=== PATIENT | female | born 1990 ===

== ENCOUNTER 2019-09-15 05:57 | Inpatient (IN) | payer BC ==
[2019-09-15] MEDS ORDERED: Water For Irrigation,Sterile 1,000 ML Container IRR PRN (06:26)
[2019-09-15] MEDS ORDERED: Lidocaine 1% 50 ML MDV INJECT PRN (06:26)
[2019-09-15] MEDS ORDERED: Butorphanol 1 MG/ML SDV IVPUSH PRN (06:26)
[2019-09-15] MEDS ORDERED: Misoprostol 200 MCG Tab PO PRN (06:26)
[2019-09-15] MEDS ORDERED: Ondansetron 4 MG/2 ML SDV IVPUSH PRN (06:26)
[2019-09-15] MEDS ORDERED: Sodium Chloride 0.9% 2.5 ML Syringe FLUSH PRN (06:26)
[2019-09-15] MEDS ORDERED: Tranexamic Acid 1,000 MG in Sodium Chloride 0.9% 100 ML IV PRN (06:26)
[2019-09-15] MEDS ORDERED: Nalbuphine 10 MG/1 ML Vial IVPUSH PRN (06:26)
[2019-09-15] MEDS ORDERED: Methylergonovine 0.2 MG/1 ML Amp IM PRN (06:26)
[2019-09-15] MEDS ORDERED: Sodium Chloride 0.9% 10 ML SDV IV PRN (06:26)
[2019-09-15] MEDS ORDERED: Carboprost Tromethamine 250 MCG/1 ML Amp IM PRN (06:26)
[2019-09-15] MEDS ORDERED: Sodium Chloride 0.9% 10 ML Syringe FLUSH PRN (06:26)
[2019-09-15] MEDS ORDERED: Oxytocin/0.9 % Sodium Chloride 30 UNIT/500 ML BAG IV SCH (06:30)
[2019-09-15] MEDS ORDERED: Lactated Ringers 1,000 ML IV SCH (06:30)
[2019-09-15] MEDS ORDERED: Oxytocin 10 Units/1 ML SDV ONE (06:40)
[2019-09-15] MEDS ORDERED: Lanolin 100% Cream 7 GM Tube TOP PRN (07:05)
[2019-09-15] MEDS ORDERED: Docusate Sodium 100 MG Cap PO PRN (07:05)
[2019-09-15] MEDS ORDERED: Witch Hazel Medicated Pads 40/Jar TOP PRN (07:05)
[2019-09-15] MEDS ORDERED: Bisacodyl 10 MG Supp RECTAL PRN (07:05)
[2019-09-15] MEDS ORDERED: Benzocaine/Menthol 20%-0.5% Spray 78 GM Cannister TOP PRN (07:05)
[2019-09-15] MEDS ORDERED: oxyCODONE 5 MG Tab PO PRN (07:05)
[2019-09-15] MEDS ORDERED: Ibuprofen 800 MG Tab PO PRN (07:05)
[2019-09-15] MEDS ORDERED: Acetaminophen 500 MG Tab PO PRN (07:05)
--- NOTE | 2019-09-15 07:13 | PCM.DEL ---
L & D Note - General Info Date of Service: 09/15/19 Mother's Due Date: 10/06/19 - Delivery Note Labor: Spontaneous Delivery Outcome: Livebirth Infant Delivery Method: Spontaneous Vaginal Delivery-Single Nuchal Cord: None Anesthesia Type: None Amniotic Fluid Description: Clear Episiotomy Type: None Laceration: 1st Degree (hemostatic without repair) Placenta: Intact, Spontaneous Cord: 3 Vessels Estimated Blood Loss: 300 [place]: Stimulated, [place] Used Score 1 min: 8 Score 5 min: 9 Second Stage Interventions: Reports: Pushing Effectively, Pushing, Pulls Own Legs Back - General Info Date of Service: 09/15/19 - Patient Data Med Orders - Current: Current Medications Butorphanol Tartrate (Stadol) 1 mg IVPUSH Q1H PRN PRN Reason: Pain Carboprost Tromethamine (Hemabate Ds) 250 mcg IM ASDIRECTED PRN PRN Reason: Post Hemorrhage Lactated Ringer's (Ringers, Lactated) 1,000 mls @ 150 mls/hr IV ASDIRECTED JHOAN Oxytocin/Sodium Chloride (Oxytocin 30 Unit/500 Ml-Ns) 30 unit in 500 mls @ 999 mls/hr IV TITRATE JHOAN Tranexamic Acid 1,000 mg/ (Sodium Chloride) 110 mls @ 660 mls/hr IV ONETIME PRN PRN Reason: Bleeding Lidocaine HCl (Xylocaine 1%) 50 ml INJECT ONETIME PRN PRN Reason: Laceration repair Methylergonovine Maleate (Methergine) 0.2 mg IM ASDIRECTED PRN PRN Reason: Post Hemorrhage Misoprostol (Cytotec) 200 mcg PO ONETIME PRN PRN Reason: Post Hemorrhage Nalbuphine HCl (Nubain) 10 mg IVPUSH Q1H PRN PRN Reason: Pain (severe 7-10) Ondansetron HCl (Zofran) 4 mg IVPUSH Q6H PRN PRN Reason: Nausea/Vomiting Sodium Chloride (Saline Flush) 10 ml FLUSH ASDIRECTED PRN PRN Reason: Keep Vein Open Sodium Chloride (Saline Flush) 2.5 ml FLUSH ASDIRECTED PRN PRN Reason: Keep Vein Open Sodium Chloride (Normal Saline) 10 ml IV ASDIRECTED PRN PRN Reason: IV Use Sterile Water (Sterile Water For Irrigation) 1,000 ml IRR ASDIRECTED PRN PRN Reason: delivery Discontinued Medications Oxytocin (Pitocin) Confirm Administered Dose 10 unit .ROUTE .STK-MED ONE Stop: 09/15/19 06:41 - Problem List & Annotations (1) Vaginal delivery SNOMED Code(s): 170293409 Code(s): O80 - ENCOUNTER FOR FULL-TERM UNCOMPLICATED DELIVERY Status: Acute Current Visit: Yes - Problem List Review Problem List Initiated/Reviewed/Updated: Yes - My Orders Last 24 Hours: My Active Orders 09/15/19 06:26 Patient Status [ADT] Routine Heart Tones [RC] CONTINUOUS Non Stress Test [RC] PER UNIT ROUTINE May Shower [RC] ASDIRECTED Notify Provider [RC] PRN Up ad Mirna [RC] ASDIRECTED Vaginal Exam [RC] PRN Vital Signs [RC] PER UNIT ROUTINE CBC W/O DIFF,HEMOGRAM [HEME] Routine RAPID PLASMA REAGIN, QUANT [REF] Routine TYPE AND SCREEN [BBK] Routine Butorphanol [Stadol] 1 mg IVPUSH Q1H PRN Carboprost Tromethamine [Hemabate DS] 250 mcg IM ASDIRECTED PRN Lidocaine 1% [Xylocaine 1%] 50 ml INJECT ONETIME PRN Methylergonovine [Methergine] 0.2 mg IM ASDIRECTED PRN Nalbuphine [Nubain] 10 mg IVPUSH Q1H PRN Ondansetron [Zofran] 4 mg IVPUSH Q6H PRN Sodium Chloride 0.9% [Normal Saline] 10 ml IV ASDIRECTED PRN Sodium Chloride 0.9% [Saline Flush] 10 ml FLUSH ASDIRECTED PRN Sodium Chloride 0.9% [Saline Flush] 2.5 ml FLUSH ASDIRECTED PRN Tranexamic Acid [Cyklokapron] 1,000 mg Sodium Chloride 0.9% [Normal Saline] 100 ml IV ONETIME Water For Irrigation,Sterile [Sterile Water for Irrigation] 1,000 ml IRR ASDIRECTED PRN miSOPROStoL [Cytotec] 200 mcg PO ONETIME PRN Scalp Electrode [WOMSER] Per Unit Routine Peripheral IV Insertion Adult [OM.PC] Routine Resuscitation Status Routine 09/15/19 06:30 Lactated Ringers [Ringers, Lactated] 1,000 ml IV ASDIRECTED Oxytocin/0.9 % Sodium Chloride [Oxytocin 30 Unit/500 ML-NS] 30 unit in 500 ml IV TITRATE 09/15/19 07:05 Notify Provider Vital Signs [RC] ASDIRECTED Acetaminophen [Tylenol Extra Strength] 1,000 mg PO Q6H PRN Benzocaine/Menthol [Dermoplast Pain Relief 20%-0.5% [place]] 78 gm TOP ASDIRECTED PRN Bisacodyl [Dulcolax] 10 mg RECTAL ONETIME PRN Docusate Sodium [Colace] 100 mg PO BID PRN Ibuprofen [Motrin] 800 mg PO Q8H PRN Lanolin [Lansinoh HPA] See Dose Instructions TOP ASDIRECTED PRN Witch Cathie [Tucks] 1 pad TOP ASDIRECTED PRN oxyCODONE 5 mg PO Q2H PRN Breast Pump [WOMSER] Per Unit Routine 09/15/19 07:08 Patient Status [ADT] Routine May Shower [RC] ASDIRECTED Up ad Mirna [RC] ASDIRECTED Vital Signs [RC] PER UNIT ROUTINE Assess Lochia [WOMSER] Per Unit Routine Assess Uterine Involution [WOMSER] Per Unit Routine Peripheral IV Discontinue [OM.PC] Routine 09/15/19 07:09 Ice Therapy [OM.PC] Per Unit Routine Perineal Care [OM.PC] Per Unit Routine Sitz Bath [OM.PC] Per Unit Routine 09/15/19 07:10 BLOOD GAS VENOUS UMBILICAL [BG] Routine 09/15/19 Breakfast Regular Diet [DIET] 09/16/19 05:11 HEMOGLOBIN/HEMATOCRIT,HH [HEME] Timed - Assessment Assessment:: 29yo s/p at 37w0d. - Plan Plan:: Admit to . Monitor lochia. Routine care.
--- NOTE | 2019-09-15 11:11 | OR ---
SURGEON: Pily Dasilva MD DATE OF PROCEDURE: 09/15/2019 PREOPERATIVE DIAGNOSES: 1. A 29-year-old, G1, P0, at 37 weeks and 0 days' gestation. 2. Spontaneous labor with spontaneous rupture of membranes. POSTOPERATIVE DIAGNOSES: 1. A 29-year-old, G1, P0, at 37 weeks and 0 days' gestation. 2. Spontaneous labor with spontaneous rupture of membranes. PROCEDURE: Spontaneous vaginal delivery. PRIMARY SURGEON: Pily Dasilva MD. ANESTHESIA: None. ESTIMATED BLOOD LOSS: 300 mL. FINDINGS: Live male infant in cephalic presentation. score of 8 and 9 at one and five minutes respectively. Weight pending. Venous cord gas pending. Small first-degree perineal laceration, hemostatic without repair. Normal placenta with 3-vessel cord. INDICATIONS: This is a 29-year-old, G1, P0, who presented to Labor and Delivery with subsequent spontaneous rupture of membranes. She was checked and found to be complete cervical dilation, and +1 station. DESCRIPTION OF PROCEDURE: The patient progressed to complete cervical dilation without epidural. She pushed and delivered a live male . score of 8 and 9 at one and five minutes respectively. Weight pending. Head delivered followed by the shoulders and remainder of body. The infant was placed on the maternal abdomen. After 60 seconds, cord was clamped and cut. The placenta was then delivered intact and with 3-vessel cord using the Carter James maneuver. Perineum was inspected and a small first-degree perineal laceration was noted and this became hemostatic without repair. The fundus was firm below the umbilicus with minimal bleeding. The patient and tolerated the delivery well. [id number] / MODL /[id number]
--- NOTE | 2019-09-16 08:53 | PCM.PNPP ---
- General Info Date of Service: 09/16/19 Functional Status: Reports: Pain Controlled, Tolerating Diet, Ambulating, Urinating - Review of Systems General: Reports: No Symptoms HEENT: Reports: No Symptoms Pulmonary: Reports: No Symptoms Cardiovascular: Reports: No Symptoms Gastrointestinal: Reports: No Symptoms Genitourinary: Reports: No Symptoms Musculoskeletal: Reports: No Symptoms Skin: Reports: No Symptoms Neurological: Reports: No Symptoms Psychiatric: Reports: No Symptoms - Patient Data Vital Signs - Most Recent: Last Vital Signs Temp 36.7 C 09/16/19 04:33 Pulse 70 09/16/19 04:33 Resp 17 09/16/19 04:33 BP 99/60 09/16/19 04:33 Pulse Ox 97 09/16/19 04:33 Weight - Most Recent: 160 lb Lab Results - Last 24 Hours: Laboratory Results - last 24 hr 09/15/19 09/16/19 Range/Units 06:45 05:18 Hgb 12.7 (12.0-16.0) g/dL Hct 38.5 (36.0-46.0) % Cord VBG pH 7.296 (7.25-7.45) Cord VBG Base Excess -7 (-10--2) Med Orders - Current: Current Medications Acetaminophen (Tylenol Extra Strength) 1,000 mg PO Q6H PRN PRN Reason: Pain Benzocaine/Menthol (Dermoplast Pain Relief 20%-0.5% [place]) 78 gm TOP ASDIRECTED PRN PRN Reason: Perineal Comfort Measure Last Admin: 09/15/19 10:45 Dose: 78 gm Bisacodyl (Dulcolax) 10 mg RECTAL ONETIME PRN PRN Reason: Constipation Butorphanol Tartrate (Stadol) 1 mg IVPUSH Q1H PRN PRN Reason: Pain Carboprost Tromethamine (Hemabate Ds) 250 mcg IM ASDIRECTED PRN PRN Reason: Post Hemorrhage Docusate Sodium (Colace) 100 mg PO BID PRN PRN Reason: Constipation Emollient Ointment (Lansinoh Hpa) 0 gm TOP ASDIRECTED PRN PRN Reason: Sore Nipples Last Admin: 09/15/19 10:45 Dose: 7 gm Lactated Ringer's (Ringers, Lactated) 1,000 mls @ 150 mls/hr IV ASDIRECTED JHOAN Oxytocin/Sodium Chloride (Oxytocin 30 Unit/500 Ml-Ns) 30 unit in 500 mls @ 999 mls/hr IV TITRATE [facility] Tranexamic Acid 1,000 mg/ (Sodium Chloride) 110 mls @ 660 mls/hr IV ONETIME PRN PRN Reason: Bleeding Ibuprofen (Motrin) 800 mg PO Q8H PRN PRN Reason: Pain Lidocaine HCl (Xylocaine 1%) 50 ml INJECT ONETIME PRN PRN Reason: Laceration repair Methylergonovine Maleate (Methergine) 0.2 mg IM ASDIRECTED PRN PRN Reason: Post Hemorrhage Misoprostol (Cytotec) 200 mcg PO ONETIME PRN PRN Reason: Post Hemorrhage Nalbuphine HCl (Nubain) 10 mg IVPUSH Q1H PRN PRN Reason: Pain (severe 7-10) Ondansetron HCl (Zofran) 4 mg IVPUSH Q6H PRN PRN Reason: Nausea/Vomiting Oxycodone HCl (Oxycodone) 5 mg PO Q2H PRN PRN Reason: Pain Sodium Chloride (Saline Flush) 10 ml FLUSH ASDIRECTED PRN PRN Reason: Keep Vein Open Sodium Chloride (Saline Flush) 2.5 ml FLUSH ASDIRECTED PRN PRN Reason: Keep Vein Open Sodium Chloride (Normal Saline) 10 ml IV ASDIRECTED PRN PRN Reason: IV Use Sterile Water (Sterile Water For Irrigation) 1,000 ml IRR ASDIRECTED PRN PRN Reason: delivery Witch Cathie (Tucks) 1 pad TOP ASDIRECTED PRN PRN Reason: comfort care Discontinued Medications Oxytocin (Pitocin) Confirm Administered Dose 10 unit .ROUTE .STK-MED ONE Stop: 09/15/19 06:41 - Interaction Disposition, : at Bedside Infant Feeding: Attempted ; Nursed Fair/Poor Support Person: - Recovery Exam Fundal Tone: Firm Fundal Level: 1 Fingerbreadths Below Umbilicus Fundal Placement: Midline Lochia Amount: Scant Lochia Color: Rubra/Red Perineum Description: Intact, Minimal Bruising/Swelling Episiotomy/Laceration: Approximated Bladder Status: Voiding Urinary Elimination: Voided - Exam General: Alert, Oriented, No Acute Distress HEENT: Pupils Equal, Pupils Reactive, EOMI Neck: Supple, Trachea Midline, No JVD Lungs: Normal Respiratory Effort GI/Abdominal Exam: Normal Bowel Sounds, Soft, Non-Tender, No Distention Extremities: Normal Inspection, Normal Range of Motion, Non-Tender, No Pedal Edema Skin: Warm, Dry, Intact Neurological: No New Focal Deficit Psy/Mental Status: Alert, Normal Affect, Normal Mood - Problem List Review Problem List Initiated/Reviewed/Updated: Yes - My Orders Last 24 Hours: My Active Orders 09/16/19 08:48 Ready for Discharge [RC] PER UNIT ROUTINE - Assessment Assessment:: 29yo PPD1 s/p at 37w0d. - Plan Plan:: Ambulating, voiding and tolerating PO Hgb 12, no s/s of anemia Stable for discharge home today. Follow up in 6wks for visit
== END 2019-09-16 14:30 | disposition home or self-care (01) | DRG 560 ==
LOC: MW.OBCHECK 05:57 → MW.OB 05:58 → MW.OBCHECK 06:26 → MW.OB 06:26 → OBSVTOIN 06:45 → MW.OB 12:00
PROVIDERS: ADMIT Obstetrics & Gynecology; ATTEND Obstetrics & Gynecology
PROC: 10E0XZZ Delivery of Products of Conception, External Approach (ICD-10-PCS; principal; 2019-09-15)
DX: O70.0 First degree perineal laceration during delivery (principal); Z37.0 Single live birth; Z3A.37 37 weeks gestation of pregnancy
CPT/HCPCS: 36415; 59025; 59409; 82803; 85014; 85018; 85027; 86593; 86850; 86900; 86901; A9270-GY

== ENCOUNTER 2022-03-18 11:12 | Emergency (ER) | payer BC ==
[2022-03-18 12:51] LABS: BLOOD UREA NITROGEN,BUN 9 mg/dL (7.0-18.0); CARBON DIOXIDE,CO2 24.3 mmol/L (21.0-32.0); CHLORIDE,CL 104 mmol/L (98-107); GLUCOSE RANDOM 95 mg/dL (74-106); SODIUM,NA 135 mmol/L (136-145)
== END 2022-03-18 13:51 | disposition home or self-care (01) ==
LOC: MW.ED 11:12
DX: O20.0 Threatened abortion (principal); Z3A.08 8 weeks gestation of pregnancy
CPT/HCPCS: 36415; 76801; 76801-26; 80053; 81001; 84702; 85025; 86900; 86901; 99283; 99284-25

== ENCOUNTER 2022-10-04 09:33 | Inpatient (IN) | payer BC ==
[2022-10-04] MEDS ORDERED: Lidocaine 1% 50 ML MDV ONE (10:03)
[2022-10-04] MEDS ORDERED: Oxytocin 10 Units/1 ML SDV IM ONE (10:05)
[2022-10-04] MEDS ORDERED: Sodium Chloride 0.9% 10 ML Syringe FLUSH PRN (10:17)
[2022-10-04] MEDS ORDERED: Sodium Chloride 0.9% 20 ML SDV IV PRN (10:17)
[2022-10-04] MEDS ORDERED: Methylergonovine 0.2 MG/1 ML Amp IM PRN (10:17)
[2022-10-04] MEDS ORDERED: Sodium Chloride 0.9% 2.5 ML Syringe FLUSH PRN (10:17)
[2022-10-04] MEDS ORDERED: Tranexamic Acid 1,000 MG in Sodium Chloride 0.9% 100 ML IV PRN (10:17)
[2022-10-04] MEDS ORDERED: Misoprostol 200 MCG Tab PO PRN (10:17)
[2022-10-04] MEDS ORDERED: Lidocaine 1% 50 ML MDV INJECT PRN (10:17)
[2022-10-04] MEDS ORDERED: Carboprost Tromethamine 250 MCG/1 ML Amp IM PRN (10:17)
[2022-10-04] MEDS ORDERED: Water For Irrigation,Sterile 1,000 ML Container IRR PRN (10:17)
[2022-10-04] MEDS ORDERED: Butorphanol 1 MG/ML SDV IVPUSH PRN (10:17)
[2022-10-04] MEDS ORDERED: Docusate Sodium 100 MG Cap PO PRN (10:19)
[2022-10-04] MEDS ORDERED: Ibuprofen 400 MG Tab PO PRN (10:19)
[2022-10-04] MEDS ORDERED: Acetaminophen 500 MG Tab PO PRN ×2 (10:19)
[2022-10-04] MEDS ORDERED: Bisacodyl 10 MG Supp RECTAL PRN (10:19)
[2022-10-04] MEDS ORDERED: Lanolin 100% Cream 7 GM Tube TOP PRN (10:19)
[2022-10-04] MEDS ORDERED: Benzocaine/Menthol 20%-0.5% Spray 78 GM Cannister TOP PRN (10:19)
[2022-10-04] MEDS ORDERED: Witch Hazel Medicated Pads 40/Jar TOP PRN (10:19)
[2022-10-04] MEDS ORDERED: oxyCODONE 5 MG Tab PO PRN (10:19)
[2022-10-04] MEDS ORDERED: Ibuprofen 800 MG Tab PO PRN (10:19)
[2022-10-04] MEDS ORDERED: Lactated Ringers 1,000 ML IV SCH (10:30)
== END 2022-10-05 12:45 | disposition home or self-care (01) | DRG 560 ==
LOC: MW.OBCHECK 09:33 → MW.OB 09:36 → MW.OBCHECK 09:55 → MW.OB 10:00
PROVIDERS: ADMIT Obstetrics & Gynecology; ATTEND Obstetrics & Gynecology
PROC: 10E0XZZ Delivery of Products of Conception, External Approach (ICD-10-PCS; principal; 2022-10-04)
PROC: 0HQ9XZZ Repair Perineum Skin, External Approach (ICD-10-PCS; 2022-10-04)
PROC: 10907ZC Drainage of Amniotic Fluid, Therapeutic from Products of Conception, Via Natural or Artificial Opening (ICD-10-PCS; 2022-10-04)
DX: O48.0 Post-term pregnancy (principal); Z3A.40 40 weeks gestation of pregnancy; Z37.0 Single live birth; O70.0 First degree perineal laceration during delivery; Z20.822 Contact with and (suspected) exposure to COVID-19
CPT/HCPCS: 36415; 59025; 59409; 85014; 85018; 85027; 86592; 86850; 86900; 86901; J2001; J2590; U0002